=== PATIENT | female | born 1980 | race Caucasian/White ===

== ENCOUNTER 2017-09-07 07:58 | Day surgery (SDC) | payer BC ==
[~2017-09-07] VITALS: Ht 154.9 cm; Wt 59.0 kg
[~2017-09-07 07:58] MED LIST: VIBRAMYCIN100 MG PO
[2017-09-07 08:43] VITALS: BP 121/59
[2017-09-07] MEDS ORDERED: ENDOCET 5-3251 EACH PO (10:15)
[2017-09-07] MEDS ORDERED: IBUPROFEN800 MG PO (10:15)
[2017-09-07 12:59] VITALS: BP 98/55
[2017-09-07 13:50] VITALS: BP 101/58
[2017-09-07 15:50] VITALS: BP 95/54
[2017-09-07 17:57] VITALS: BP 107/56
== END 2017-09-07 18:12 | disposition home or self-care (01) ==
LOC: SDC 07:58
DX: N94.6 Dysmenorrhea, unspecified (principal); N72 Inflammatory disease of cervix uteri; N80.0 Endometriosis of uterus; G89.29 Other chronic pain; R10.2 Pelvic and perineal pain; N94.89 Other specified conditions associated with female genital organs and menstrual cycle; Z80.41 Family history of malignant neoplasm of ovary; Z83.49 Family history of other endocrine, nutritional and metabolic diseases; Z82.3 Family history of stroke
CPT/HCPCS: 84702; 85025; 86850; 86900; 86901; 88307; J0131; J0690; J1100; J1170; J1885; J2250; J2405; J2710; J2765; J3010

== ENCOUNTER 2017-09-27 21:45 | Emergency (ER) | payer BC ==
[~2017-09-27] VITALS: Ht 154.9 cm; Wt 58.6 kg
[~2017-09-27 21:45] MED LIST changes: +ENDOCET 5-3251 EACH PO; +IBUPROFEN800 MG PO
[2017-09-28] MEDS ORDERED: LIDODERM 5% P1 PATCH TD (01:00)
[2017-09-28] MEDS ORDERED: VALIUM5 MG PO (01:00)
[2017-09-28] MEDS ORDERED: ULTRAM50 MG PO (01:00)
[2017-09-28 01:16] VITALS: BP 148/79
== END 2017-09-28 01:17 | disposition home or self-care (01) ==
LOC: EME 21:45
DX: M43.6 Torticollis (principal); M62.838 Other muscle spasm
CPT/HCPCS: 99281; 99284; J1885; J3010